=== PATIENT | male | born 1970 | race Caucasian/White ===

== ENCOUNTER 2016-03-27 12:36 | Emergency (ER) | payer BC ==
[2016-03-27 13:37] VITALS: TEMP 98.8; BMI 22.1
[2016-03-27] MEDS ORDERED: PREDNISONE 20 MG TAB PO ONE (14:32)
[2016-03-27] MEDS ORDERED: CYCLOBENZAPRINE 10 MG TAB PO ONE (14:32)
[2016-03-27] MEDS ORDERED: OXYCODONE HCL 5 MG TABLET PO ONE (14:32)
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
--- NOTE | 2016-03-27 15:18 | DIRPT ---
CLINICAL DATA: Mid back pain extends to the chest and abdomen. EXAM: THORACIC SPINE 2 VIEWS COMPARISON: MRI lumbar spine 10/14/2005. FINDINGS: Twelve rib-bearing thoracic type vertebral bodies are present. Superior endplate compression fractures are present at T11 and T12. These are age indeterminate. They were not present in 2005. Vertebral body heights and alignment are otherwise maintained. Degenerative changes are again noted within the cervical spine. IMPRESSION: 1. Age indeterminate superior endplate fractures at T11 and T12. 2. The remainder of the thoracic spine is unremarkable. 3. Degenerative changes within the lower cervical spine. Electronically Signed By: Jose Lagos M.D. On: 03/27/2016 15:16
--- NOTE | 2016-03-27 15:19 | DIRPT ---
CLINICAL DATA: Chronic lower back and right leg pain. EXAM: LUMBAR SPINE - COMPLETE 4+ VIEW COMPARISON: April 03, 2004. FINDINGS: No acute fracture or spondylolisthesis is noted. Mild compression deformity of T12 vertebral body is noted which appears to be old. Mild degenerative disc disease is noted at L1-2 and L4-5. Posterior facet joints are unremarkable. Mild anterior osteophyte formation is noted at multiple levels. IMPRESSION: Mild multilevel degenerative disc disease is noted. No acute abnormality seen in the lumbar spine. Electronically Signed By: Kayode Durand Jr, M.D. On: 03/27/2016 15:16
[2016-03-27 16:13] VITALS: BP 144/87; PULSE 106
== END 2016-03-27 16:11 | disposition home or self-care (01) ==
LOC: ED 12:36 → EDMC 16:11
DX: M54.16 Radiculopathy, lumbar region (principal); M54.5 Low back pain
CPT/HCPCS: 72070; 72110; 99283; J3490